=== PATIENT | male | born 1955 | race Caucasian/White ===

== ENCOUNTER 2019-08-28 23:29 | Inpatient (IN) ==
[2019-08-28] MEDS ORDERED: 0.9 % Sodium Chloride 500 ML IVC ONE (23:33)
[2019-08-28] MEDS ORDERED: Aspirin 81 MG TAB.CHEW PO ONE (23:33)
[2019-08-28] MEDS: Nitroglycerin 0.4 MG TAB.SUBL SL PRN (23:56)
[2019-08-29] MEDS: Nitroglycerin 0.4 MG TAB.SUBL SL PRN (00:01)
[2019-08-29 00:03] LABS: Prothrombin Time 11.8 Seconds (9.4-12.1)
[2019-08-29 00:06] LABS: Activated Partial Thrombo Time 33.6 Seconds (26.0-36.0)
[2019-08-29] MEDS ORDERED: *HR* Metoprolol 5 MG/5 ML VIAL IVP ONE (00:07)
[2019-08-29] MEDS ORDERED: Isovue-370 500 ML BOTTLE IVP ONE (00:12)
[2019-08-29 00:20] LABS: Chloride 100 mEq/L (98-107); Potassium 4.5 mEq/L (3.5-5.1); Sodium 138 mEq/L (136-145)
[2019-08-29 00:21] LABS: Basophils # 0.1 K/mcL (0.0-0.2); Eosinophils # 0.2 K/mcL (0.0-0.6); Eosinophils % 2.5 %; Hematocrit 45.5 % (37.5-50.1); Hemoglobin 15.1 g/dL (12.9-16.9); Immature Granulocytes % 0.2 % (0-4); Lymphocytes % 32.7 %; Mean Corpuscular HGB Conc 33.2 g/dL (31.6-35.5); Mean Corpuscular Hemoglobin 29.4 pg (28.0-33.3); Mean Corpuscular Volume 88.5 fL (83.0-100.0); Mean Platelet Volume 11.8 fL (9.4-12.4); Monocytes # 0.6 K/mcL (0.0-1.3); Monocytes % 9.8 %; Neutrophils # 3.2 K/mcL (1.6-8.9); Platelet Count 174 K/mcL (140-400); Red Blood Count 5.14 M/mcL (4.19-5.50); Red Cell Distribution Width 13.5 % (11.5-14.5); Segmented Neutrophils % 53.8 %
[2019-08-29] MEDS ORDERED: *HR* Heparin 5,000 UNIT/ML VIAL IVP ONE (00:21)
[2019-08-29 00:46] LABS: BUN/Creatinine Ratio 29 (6-26); Blood Urea Nitrogen 26 mg/dL (8-23); Carbon Dioxide 25 mEq/L (23-29); Glucose 216 mg/dL (70-105); Osmolality,Calculated 297 (280-300); eGFR For African Americans > 60 (> 60); eGFR For Non-African Americans > 60 (> 60)
[2019-08-29 00:51] LABS: Bilirubin,Urine Negative (Negative); Blood,Urine Negative (Negative); Clarity,Urine Clear (Clear); Color,Urine Yellow (Yellow); Glucose,Urine (UA) 500 mg/dL (Normal); Ketones,Urine Trace mg/dL (Negative); Leukocyte Esterase,Urine Negative (Negative); Nitrite,Urine Negative (Negative); PH,Urine 7.5 pH Units (5.0-8.0); Protein,Urine 30 mg/dL (Neg-Trace); Specific Gravity,Urine 1.024 (1.010-1.025); Urobilinogen,Urine Normal (Normal)
[2019-08-29 00:53] LABS: Bacteria,Urine None Seen per hpf (None-Few); Hyaline Casts,Urine None Seen per lpf (None-Few); RBC,Urine 0-3 per hpf (0-3); Squamous Epithelial Cell,Urine Few per lpf (None-Few); WBC,Urine 0-3 per hpf (0-3)
[2019-08-29] MEDS: Heparin 25,000 UNIT/250 ML D5W 25,000 UNIT/250 ML IV.SOLN IVC SCH (01:27)
[2019-08-29 02:57] LABS: Amphetamine Screen,Urine Negative ng/mL (Cutoff=1000); Barbiturate Screen,Urine Negative ng/mL (Cutoff=200); Benzodiazepines Screen,Urine Negative ng/mL (Cutoff=200); Cannabinoid Screen,Urine Negative ng/mL (Cutoff = 50); Cocaine Screen,Urine Negative ng/mL (Cutoff= 300); Opiate Screen,Urine Negative ng/mL (Cutoff=300); Phencyclidine Screen,Urine Negative ng/mL (Cutoff=25)
[2019-08-29 02:59] LABS: Troponin I 0.09 ng/mL (< 0.04)
[2019-08-29] MEDS ORDERED: D5% in Water 1,000 ML IVC PRN (03:24)
[2019-08-29] MEDS ORDERED: *HR* Dextrose 50 % in Water (Syg) 50 ML SYRINGE IVP PRN (03:24)
[2019-08-29] MEDS ORDERED: Dextrose Gel 15 GM/37.5 ML TUBE PO PRN ×2 (03:24)
[2019-08-29] MEDS ORDERED: Naloxone 0.4 MG/ML INJ IVP PRN (04:16)
[2019-08-29] MEDS ORDERED: Insulin LISPRO 300 UNITS/3 ML VIAL SQ SCH (06:00)
[2019-08-29 07:47] LABS: Basophils % 0.8 %; Eosinophils # 0.1 K/mcL (0.0-0.6); Eosinophils % 2.6 %; Hematocrit 41.5 % (37.5-50.1); Hemoglobin 13.6 g/dL (12.9-16.9); Immature Granulocytes % 0.4 % (0-4); Lymphocytes # 1.5 K/mcL (0.6-4.6); Lymphocytes % 29.3 %; Mean Corpuscular HGB Conc 32.8 g/dL (31.6-35.5); Mean Corpuscular Hemoglobin 29.2 pg (28.0-33.3); Mean Corpuscular Volume 89.1 fL (83.0-100.0); Mean Platelet Volume 11.7 fL (9.4-12.4); Monocytes # 0.5 K/mcL (0.0-1.3); Monocytes % 9.2 %; Neutrophils # 2.9 K/mcL (1.6-8.9); Platelet Count 168 K/mcL (140-400); Red Blood Count 4.66 M/mcL (4.19-5.50); Red Cell Distribution Width 13.5 % (11.5-14.5); Segmented Neutrophils % 57.7 %
[2019-08-29 08:03] LABS: BUN/Creatinine Ratio 29 (6-26); Blood Urea Nitrogen 20 mg/dL (8-23); Calcium 9.4 mg/dL (8.6-10.3); Carbon Dioxide 30 mEq/L (23-29); Chloride 101 mEq/L (98-107); Glucose 116 mg/dL (70-105); Osmolality,Calculated 296 (280-300); Potassium 4.2 mEq/L (3.5-5.1); Sodium 141 mEq/L (136-145); eGFR For African Americans > 60 (> 60); eGFR For Non-African Americans > 60 (> 60)
[2019-08-29 08:45] LABS: Estimated Average Glucose 151 mg/dl
[2019-08-29] MEDS: Insulin LISPRO 300 UNITS/3 ML VIAL SQ SCH ×3 (12:59→22:42)
[2019-08-29] MEDS ORDERED: *HR* Heparin 5,000 UNIT/ML VIAL IVP PRN ×2 (14:59)
[2019-08-29] MEDS: Baclofen 10 MG TABLET PO SCH (22:48)
[2019-08-29] MEDS: Gabapentin 300 MG CAPSULE PO SCH (22:48)
[2019-08-30 05:22] LABS: Hematocrit 42.4 % (37.5-50.1); Hemoglobin 14.3 g/dL (12.9-16.9); Mean Corpuscular HGB Conc 33.7 g/dL (31.6-35.5); Mean Corpuscular Hemoglobin 29.1 pg (28.0-33.3); Mean Corpuscular Volume 86.4 fL (83.0-100.0); Mean Platelet Volume 12.4 fL (9.4-12.4); Platelet Count 169 K/mcL (140-400); Red Blood Count 4.91 M/mcL (4.19-5.50); Red Cell Distribution Width 13.5 % (11.5-14.5)
[2019-08-30 05:37] LABS: BUN/Creatinine Ratio 28 (6-26); Blood Urea Nitrogen 18 mg/dL (8-23); Calcium 9.7 mg/dL (8.6-10.3); Carbon Dioxide 27 mEq/L (23-29); Chloride 104 mEq/L (98-107); Glucose 132 mg/dL (70-105); Osmolality,Calculated 290 (280-300); Sodium 138 mEq/L (136-145); eGFR For African Americans > 60 (> 60); eGFR For Non-African Americans > 60 (> 60)
[2019-08-30] MEDS: Heparin 25,000 UNIT/250 ML D5W 25,000 UNIT/250 ML IV.SOLN IVC SCH (07:47)
[2019-08-30] MEDS: Aspirin Enteric Coated 81 MG Tablet PO SCH (08:20)
[2019-08-30] MEDS: Baclofen 10 MG TABLET PO SCH ×2 (08:20→19:54)
[2019-08-30] MEDS: Gabapentin 300 MG CAPSULE PO SCH ×3 (08:20→19:54)
[2019-08-30] MEDS: Insulin LISPRO 300 UNITS/3 ML VIAL SQ SCH ×4 (08:21→20:07)
[2019-08-31 04:57] LABS: Hemoglobin 14.1 g/dL (12.9-16.9); Mean Corpuscular HGB Conc 33.6 g/dL (31.6-35.5); Mean Corpuscular Volume 86.4 fL (83.0-100.0); Mean Platelet Volume 11.8 fL (9.4-12.4); Platelet Count 155 K/mcL (140-400); Red Blood Count 4.86 M/mcL (4.19-5.50); Red Cell Distribution Width 13.5 % (11.5-14.5); White Blood Count 4.6 K/mcL (4.3-11.1)
[2019-08-31 05:14] LABS: BUN/Creatinine Ratio 38 (6-26); Blood Urea Nitrogen 27 mg/dL (8-23); Calcium 9.7 mg/dL (8.6-10.3); Carbon Dioxide 28 mEq/L (23-29); Chloride 102 mEq/L (98-107); Glucose 148 mg/dL (70-105); Osmolality,Calculated 294 (280-300); Potassium 4.4 mEq/L (3.5-5.1); Sodium 138 mEq/L (136-145); eGFR For African Americans > 60 (> 60); eGFR For Non-African Americans > 60 (> 60)
[2019-08-31] MEDS ORDERED: *HR* Heparin 10,000 UNIT/10 ML VIAL ONE (07:33)
[2019-08-31] MEDS ORDERED: ISOVUE-370 200 ML INFUS..BTL ONE ×2 (07:33→08:51)
[2019-08-31] MEDS ORDERED: Heparin 1,000 UNITS/500 mL 500 ML ONE (07:33)
[2019-08-31] MEDS ORDERED: 0.9 % Sodium Chloride 1,000 ML ONE (07:33)
[2019-08-31] MEDS ORDERED: Nitroglycerin 1,000 MCG/10 ML VIAL IV ONE (07:33)
[2019-08-31] MEDS: Aspirin Enteric Coated 81 MG Tablet PO SCH (07:37)
[2019-08-31] MEDS: Baclofen 10 MG TABLET PO SCH ×2 (07:37→20:08)
[2019-08-31] MEDS: Gabapentin 300 MG CAPSULE PO SCH (07:37)
[2019-08-31] MEDS ORDERED: *HR* Midazolam HCl 2 MG/2 ML VIAL ONE (08:18)
[2019-08-31] MEDS ORDERED: *HR* FentaNYL (PF) 100 MCG/2 ML VIAL ONE (08:18)
[2019-08-31] MEDS ORDERED: Tirofiban 12.5 MG/250ML 12.5 MG/250 ML BAG ONE (08:33)
[2019-08-31] MEDS ORDERED: *HR* Ticagrelor 90 MG TABLET ONE (08:55)
[2019-08-31] MEDS ORDERED: Tirofiban 12.5 MG/250ML 12.5 MG/250 ML BAG IVC SCH (09:15)
[2019-08-31] MEDS: Insulin LISPRO 300 UNITS/3 ML VIAL SQ SCH ×4 (10:22→20:12)
[2019-08-31] MEDS: Heparin 25,000 UNIT/250 ML D5W 25,000 UNIT/250 ML IV.SOLN IVC SCH (16:01)
[2019-08-31] MEDS: *HR* Ticagrelor 90 MG TABLET PO SCH (20:08)
[2019-08-31] MEDS ORDERED: Gabapentin 300 MG CAPSULE PO SCH (21:00)
[2019-09-01 04:43] LABS: Hematocrit 40.8 % (37.5-50.1); Hemoglobin 13.9 g/dL (12.9-16.9); Mean Corpuscular HGB Conc 34.1 g/dL (31.6-35.5); Mean Corpuscular Hemoglobin 29.1 pg (28.0-33.3); Mean Corpuscular Volume 85.4 fL (83.0-100.0); Mean Platelet Volume 11.8 fL (9.4-12.4); Platelet Count 158 K/mcL (140-400); Red Blood Count 4.78 M/mcL (4.19-5.50); Red Cell Distribution Width 13.4 % (11.5-14.5); White Blood Count 6.9 K/mcL (4.3-11.1)
[2019-09-01 05:01] LABS: BUN/Creatinine Ratio 22 (6-26); Blood Urea Nitrogen 15 mg/dL (8-23); Calcium 9.2 mg/dL (8.6-10.3); Carbon Dioxide 29 mEq/L (23-29); Chloride 102 mEq/L (98-107); Glucose 131 mg/dL (70-105); Osmolality,Calculated 293 (280-300); Potassium 4.4 mEq/L (3.5-5.1); Sodium 140 mEq/L (136-145); eGFR For African Americans > 60 (> 60); eGFR For Non-African Americans > 60 (> 60)
[2019-09-01] MEDS: Baclofen 10 MG TABLET PO SCH (08:16)
[2019-09-01] MEDS: Aspirin Enteric Coated 81 MG Tablet PO SCH (08:17)
[2019-09-01] MEDS: *HR* Ticagrelor 90 MG TABLET PO SCH (08:17)
[2019-09-01] MEDS: Insulin LISPRO 300 UNITS/3 ML VIAL SQ SCH ×2 (08:19→12:41)
[2019-09-01] MEDS ORDERED: Gabapentin 300 MG CAPSULE PO SCH (09:00)
[2019-09-01 11:20] VITALS: BP 133/81
[2019-09-01] MEDS ORDERED: FLU Vac QV 19-20 (6Month+)/PF 0.5 ML SYRINGE IM ONE (12:32)
== END 2019-09-01 15:10 | disposition home or self-care (01) | DRG 247 ==
LOC: 2NENU 23:29 → EMEROOARM 23:29 → SUATTDRO 08-29 01:11 → 2NENU 08-29 01:32
PROVIDERS: ADMIT Internal Medicine; ATTEND Family Medicine